=== PATIENT | male | born 1995 | race Caucasian/White ===

== ENCOUNTER 2021-09-06 06:53 | Emergency (ER) | payer SELFPAY ==
[~2021-09-06] VITALS: Ht 182.9 cm; Wt 88.5 kg
[2021-09-06 08:13] VITALS: BP 114/54
[2021-09-06] MEDS ORDERED: cefTRIAXone SOD 1,000 MG VL IM ONE (08:30)
[2021-09-06] MEDS ORDERED: LIDOCAINE VISCOUS 2% 15ML UD PO ONE (08:30)
[2021-09-06] MEDS ORDERED: AZIT500T66 PO (09:14)
[2021-09-06] MEDS ORDERED: LIDO2SOL23 MT (09:14)
[2021-09-06] MEDS ORDERED: IBUP800T27 PO (09:14)
== END 2021-09-06 10:31 | disposition home or self-care (01) ==
LOC: ER 06:53 → EDBD 06:53 → ER 10:31
DX: J03.90 Acute tonsillitis, unspecified (principal); Z20.822 Contact with and (suspected) exposure to COVID-19
CPT/HCPCS: 36415; 87070; 87426; 87880; 96372; 99283; J0696

== ENCOUNTER 2021-09-17 07:45 | Emergency (ER) | payer BC ==
[~2021-09-17] VITALS: Ht 182.9 cm; Wt 88.5 kg
[~2021-09-17 07:45] MED LIST: AZIT500T66 PO; IBUP800T27 PO; LIDO2SOL23 MT
[2021-09-17 07:53] VITALS: BP 123/63
[2021-09-17] MEDS ORDERED: ACETAMINOPHEN 325 MG TAB PO ONE (08:00)
[2021-09-17] MEDS ORDERED: PENICILLIN G BENZ 1200000 UNITS/2 ML SYRG IM ONE (08:00)
[2021-09-17] MEDS ORDERED: CEPH-322 PO (08:01)
== END 2021-09-17 08:17 | disposition home or self-care (01) ==
LOC: ER 07:45
DX: J03.90 Acute tonsillitis, unspecified (principal)
CPT/HCPCS: 96372; 99283; J0561